=== PATIENT | female | born 1935 | race Caucasian/White ===

== ENCOUNTER 2017-08-25 21:07 | Emergency (ER) | payer MEDICARE, OTHER ==
[~2017-08-25] VITALS: Ht 157.5 cm; Wt 91.6 kg
[~2017-08-25 21:07] MED LIST: ALBU.083IS IH; ALBU90OI INH; ASPI325 PO; ATEN25 PO; AZIT250 PO; B-122500 MCG PO; CALCAVITD PO; CHOL10002; CHOL10002 PO; CITA10S PO; Celexa10 MG PO; Citalopram HBr10 MG PO; DESL5 PO; DIGO.125 PO; FISH1000 PO; FLUSAL2505 INH; FURO20 PO; FURO40 PO; Flonase 0.05% N16 GM; GABA100 PO; HYDACE5 PO; HYDR1TAB94 PO; Hydrocodone-Ap1 EA23 PO; LEVO-T25 MCG; LIDO5TP TOP; LISI5 PO; LORA.5 PO; LORA1 PO; LOSA25 PO; LOSA50 PO; Mobic15 MG PO; NAPR500 PO; NEBI10 PO; OXYACE5T PO; POTASSIUM CHLO20 MEQ PO; POTCHL20ER PO; PRAM.125 PO; PRAM.5 PO; RISE5 PO; Synthroid25 MCG PO; TOCO1000 PO; WALKER USE; WARF5 PO; XARELTO; XARELTO PO; XARELTO20 MG PO
[2017-08-25] MEDS ORDERED: FURO20 PO (21:25)
[2017-08-25] MEDS ORDERED: CLARITIN10 MG PO (21:27)
[2017-08-25] MEDS ORDERED: Norco 5-325 Ta1 EACH PO (22:56)
== END 2017-08-25 23:15 | disposition home or self-care (01) ==
LOC: ER 21:07
DX: S40.012A Contusion of left shoulder, initial encounter (principal); I11.0 Hypertensive heart disease with heart failure; I50.9 Heart failure, unspecified; I48.91 Unspecified atrial fibrillation; Z88.8 Allergy status to other drugs, medicaments and biological substances; Z91.040 Latex allergy status; Z79.899 Other long term (current) drug therapy; Z87.891 Personal history of nicotine dependence; W19.XXXA Unspecified fall, initial encounter
CPT/HCPCS: 73030; 96374; 99283; J3010

== ENCOUNTER → 2020-10-06 | Outpatient (CLI) | payer MEDICARE, OTHER ==
[~2020-10-06] MED LIST changes: +CLARITIN10 MG PO; +METO25ER PO; +Norco 5-325 Ta1 EACH PO
[2020-10-06 20:01] LABS: Percent Saturation 34.1 % (15.0-50.0)
== END | disposition home or self-care (01) ==
LOC: LAB SHORT 15:10 → LAB 15:10
PROVIDERS: Internal Medicine Hematology & Oncology
DX: D50.9 Iron deficiency anemia, unspecified (principal)
CPT/HCPCS: 82728; 83540; 83550

== ENCOUNTER → 2021-09-21 | Outpatient (CLI) | payer MEDICARE, OTHER ==
[2021-09-21 19:56] LABS: Percent Saturation 21.4 % (15.0-50.0)
== END | disposition home or self-care (01) ==
LOC: LAB SHORT 15:08 → LAB 15:08
PROVIDERS: Internal Medicine Hematology & Oncology
DX: D50.9 Iron deficiency anemia, unspecified (principal)
CPT/HCPCS: 82728; 83540; 83550

== ENCOUNTER 2022-03-12 04:30 | Emergency (ER) | payer MEDICARE, OTHER ==
[~2022-03-12] VITALS: Ht 162.6 cm; Wt 79.4 kg
[2022-03-12 05:08] LABS: BASOPHILS ABSOLUTE AUTO 0.04 K/mm3 (0.00-0.23); BASOPHILS PERCENT AUTO 1 % (0-2); EOSINOPHILS ABSOLUTE AUTO 0.14 K/mm3 (0.00-0.68); EOSINOPHILS PERCENT AUTO 2 % (0-6); Hematocrit 38.8 % (33.0-51.0); Hemoglobin 12.5 g/dL (11.5-16.0); IMMATURE GRAN ABSOLUTE AUTO 0.05 K/mm3 (0.00-0.10); IMMATURE GRAN PERCENT AUTO 1 % (0-1); LYMPHOCYTES ABSOLUTE AUTO 1.64 K/mm3 (0.84-5.20); LYMPHOCYTES PERCENT AUTO 24 % (21-46); MONOCYTES ABSOLUTE AUTO 0.45 K/mm3 (0.16-1.47); MONOCYTES PERCENT AUTO 7 % (4-13); Mean Corpuscular HGB 30.8 pg (26.0-34.0); Mean Corpuscular HGB Conc 32.2 g/dL (31.5-36.5); Mean Corpuscular Volume 96 fL (80-100); Mean Platelet Volume 9.5 fL (9.1-12.4); NEUTROPHILS ABSOLUTE AUTO 4.51 K/mm3 (1.96-9.15); NEUTROPHILS PERCENT AUTO 66 % (41-73); Platelet Count 314 K/mm3 (150-400); RDW Coefficient Variation 12.5 % (11.7-14.2); RDW Standard Deviation 43.9 fL (35.1-46.3); Red Blood Cell Count 4.06 M/mm3 (3.80-5.20); White Blood Cell Count 6.83 K/mm3 (4.00-11.30)
[2022-03-12 05:18] LABS: Albumin, Blood 3.1 g/dL (3.4-5.0); Albumin/Globulin Ratio 0.8 (0.8-1.8); Bilirubin, Total 0.4 mg/dL (0.1-1.0); Bun/Creatinine Ratio 22.5 (12.0-20.0); Calcium, Blood 8.7 mg/dL (8.5-10.1); Creatinine, Blood 0.89 mg/dL (0.40-1.00); Globulin, Blood 3.8 g/dL (2.2-4.0); Potassium, Blood 4.1 mmol/L (3.5-5.5); Total Protein, Blood 6.9 g/dL (6.4-8.2)
[2022-03-12] MEDS ORDERED: LIDO700A20 TOP (06:21)
== END 2022-03-12 06:46 | disposition home or self-care (01) ==
LOC: ER 04:30
PROVIDERS: Student in an Organized Health Care Education/Training Program
DX: R07.89 Other chest pain (principal); I48.91 Unspecified atrial fibrillation; Z88.8 Allergy status to other drugs, medicaments and biological substances; Z91.040 Latex allergy status; Z79.899 Other long term (current) drug therapy; Z79.01 Long term (current) use of anticoagulants
CPT/HCPCS: 71045; 80053; 84484; 85025; 93005; 93010; A9270

== ENCOUNTER 2022-03-14 11:10 | Emergency (ER) | payer MEDICARE, OTHER ==
[~2022-03-14] VITALS: Ht 157.5 cm; Wt 79.8 kg
[~2022-03-14 11:10] MED LIST changes: +LIDO700A20 TOP
[2022-03-14] MEDS ORDERED: Voltaren100 GM TOP (12:34)
== END 2022-03-14 12:51 | disposition home or self-care (01) ==
LOC: ER 11:10
DX: M25.532 Pain in left wrist (principal); I48.91 Unspecified atrial fibrillation; Z88.8 Allergy status to other drugs, medicaments and biological substances; Z91.040 Latex allergy status; Z79.899 Other long term (current) drug therapy; Z79.01 Long term (current) use of anticoagulants
CPT/HCPCS: 73110; A9270

== ENCOUNTER 2023-09-26 07:18 | Emergency (ER) | payer MEDICARE, OTHER ==
[~2023-09-26] VITALS: Ht 152.4 cm; Wt 59.0 kg
[~2023-09-26 07:18] MED LIST changes: +Voltaren100 GM TOP
[2023-09-26] MEDS ORDERED: Cyclobenzaprine HCl 10 MG Tab PO ONE (07:50)
[2023-09-26] MEDS ORDERED: HYDROcodone 5-APAP 325 TAB PO ONE ×2 (07:55→10:00)
[2023-09-26] MEDS ORDERED: Ketorolac Tromethamine 30mg Vial IM ONE (09:05)
[2023-09-26] MEDS ORDERED: LIDO700A20 TOP (09:52)
[2023-09-26] MEDS ORDERED: OXYACE7.5T PO (09:52)
[2023-09-26] MEDS ORDERED: Lidocaine 4% 1 Patch TOP ONE (10:00)
[2023-09-26] MEDS ORDERED: CYCL10 PO (10:01)
[2023-09-26 10:17] VITALS: BP 143/84
== END 2023-09-26 10:41 | disposition home or self-care (01) ==
LOC: ER 07:18
DX: M25.552 Pain in left hip (principal); I48.91 Unspecified atrial fibrillation
CPT/HCPCS: 73502; 93971; 96372; 99284-25; A9270; J1885

== ENCOUNTER → 2023-11-07 | Outpatient (CLI) | payer MEDICARE, OTHER ==
[~2023-11-07] MED LIST changes: +CYCL10 PO; +OXYACE7.5T PO
[2023-11-07 19:53] LABS: Percent Saturation 29.6 % (15.0-50.0)
[2023-11-07 20:12] LABS: BASOPHILS ABSOLUTE AUTO 0.04 K/mm3 (0.00-0.23); BASOPHILS PERCENT AUTO 1 % (0-2); EOSINOPHILS ABSOLUTE AUTO 0.07 K/mm3 (0.00-0.68); EOSINOPHILS PERCENT AUTO 1 % (0-6); Hemoglobin 12.9 g/dL (11.5-16.0); IMMATURE GRAN ABSOLUTE AUTO 0.02 K/mm3 (0.00-0.10); IMMATURE GRAN PERCENT AUTO 0 % (0-1); LYMPHOCYTES ABSOLUTE AUTO 1.04 K/mm3 (0.84-5.20); LYMPHOCYTES PERCENT AUTO 13 % (21-46); MONOCYTES ABSOLUTE AUTO 0.48 K/mm3 (0.16-1.47); MONOCYTES PERCENT AUTO 6 % (4-13); Mean Platelet Volume 11.1 fL (9.1-12.4); NEUTROPHILS ABSOLUTE AUTO 6.09 K/mm3 (1.96-9.15); NEUTROPHILS PERCENT AUTO 79 % (41-73); Platelet Count 305 K/mm3 (150-400); White Blood Cell Count 7.74 K/mm3 (4.00-11.30)
[2023-11-07 20:13] LABS: Hematocrit 41.3 % (33.0-51.0); Mean Corpuscular HGB 28.5 pg (26.0-34.0); Mean Corpuscular HGB Conc 31.2 g/dL (31.5-36.5); Mean Corpuscular Volume 91 fL (80-100); Red Blood Cell Count 4.52 M/mm3 (3.80-5.20)
== END | disposition home or self-care (01) ==
LOC: LAB SHORT 18:50 → LAB 18:50
PROVIDERS: Internal Medicine Hematology & Oncology
DX: E61.1 Iron deficiency (principal)
CPT/HCPCS: 82728; 83540; 83550; 85025

== ENCOUNTER → 2024-01-02 | Outpatient (CLI) | payer MEDICARE, OTHER ==
[2024-01-03 16:04] LABS: Percent Saturation 18.3 % (15.0-50.0)
[2024-01-03 16:07] LABS: Thyroid Stimulating Hormone 2.66 uIU/mL (0.360-4.800)
== END ==
LOC: LAB SHORT 13:46 → LAB 13:46
PROVIDERS: Internal Medicine Hematology & Oncology
DX: E61.1 Iron deficiency (principal); E03.9 Hypothyroidism, unspecified
CPT/HCPCS: 82728; 83540; 83550; 84443

== ENCOUNTER → 2024-03-03 | Outpatient (CLI) | payer MEDICARE, OTHER ==
[2024-03-03 19:04] LABS: BASOPHILS ABSOLUTE AUTO 0.05 K/mm3 (0.00-0.23); BASOPHILS PERCENT AUTO 1 % (0-2); EOSINOPHILS PERCENT AUTO 2 % (0-6); Hematocrit 40.1 % (33.0-51.0); Hemoglobin 13.5 g/dL (11.5-16.0); IMMATURE GRAN ABSOLUTE AUTO 0.03 K/mm3 (0.00-0.10); IMMATURE GRAN PERCENT AUTO 1 % (0-1); LYMPHOCYTES ABSOLUTE AUTO 1.25 K/mm3 (0.84-5.20); LYMPHOCYTES PERCENT AUTO 19 % (21-46); MONOCYTES ABSOLUTE AUTO 0.49 K/mm3 (0.16-1.47); MONOCYTES PERCENT AUTO 7 % (4-13); Mean Corpuscular HGB 32.3 pg (26.0-34.0); Mean Corpuscular HGB Conc 33.7 g/dL (31.5-36.5); Mean Corpuscular Volume 96 fL (80-100); Mean Platelet Volume 10.6 fL (9.1-12.4); NEUTROPHILS PERCENT AUTO 71 % (41-73); Platelet Count 303 K/mm3 (150-400); RDW Coefficient Variation 13.2 % (11.7-14.2); RDW Standard Deviation 46.5 fL (35.1-46.3); Red Blood Cell Count 4.18 M/mm3 (3.80-5.20); White Blood Cell Count 6.62 K/mm3 (4.00-11.30)
[2024-03-03 19:54] LABS: Percent Saturation 39.9 % (15.0-50.0)
== END ==
LOC: LAB 17:13 → LAB SHORT 17:13
PROVIDERS: Internal Medicine Hematology & Oncology
DX: D50.9 Iron deficiency anemia, unspecified (principal)
CPT/HCPCS: 82728; 83540; 83550; 85025